=== PATIENT | female | born 1995 | race Caucasian/White ===

== ENCOUNTER → 2020-04-01 11:18 | Outpatient (BNVA) | payer MEDICAID, SELFPAY | PROVIDERS: Family Provider Nurse Practitioner; PCP Nurse Practitioner; Visit Provider Nurse Practitioner Women's Health | DX: O26.841 Uterine size-date discrepancy, first trimester (principal); O99.210 Obesity complicating pregnancy, unspecified trimester; O99.281 Endocrine, nutritional and metabolic diseases complicating pregnancy, first trimester; Z3A.08 8 weeks gestation of pregnancy | CPT/HCPCS: 81000; 84702 ==

== ENCOUNTER 2020-04-06 10:00 | Outpatient (CLI) | payer MEDICAID, SELFPAY ==
--- NOTE | 2020-04-06 10:09 | US_ITS ---
WS: [id number] EARLY OBSTETRICAL ULTRASOUND (<14 WEEKS). HISTORY: dating COMPARISON: None available. Single intrauterine gestational sac is identified. Cardiac activity at 129. [place]-rump length measure s 1.0 cm which corresponds to a gestation of 7w1d. Normal-appearing yolk sac and amnion demonstrated. No subchorionic hemorrhage. No free fluid. Both ovaries are identified and unremarkable. Multiple small peripheral follicles with in each ovary. Corpus luteum in the LEFT ovary measures 2.0 x 1.5 x 1.6 cm. Cervix is closed. No free fluid. US/US OB transvaginal [id number] IMPRESSION: 1. Single intrauterine gestation of 7 weeks 1 day with an EDC of 11/22/2020. 2. No complications are evident.
== END 2020-04-06 10:01 | disposition home or self-care (01) ==
LOC: RAD 10:03
PROVIDERS: PCP Nurse Practitioner Family; Visit Provider Nurse Practitioner Women's Health
DX: O26.841 Uterine size-date discrepancy, first trimester (principal); Z3A.01 Less than 8 weeks gestation of pregnancy
CPT/HCPCS: 76817

== ENCOUNTER → 2020-04-13 12:12 | Outpatient (BNVA) | payer MEDICAID, SELFPAY | PROVIDERS: PCP Nurse Practitioner Family; Visit Provider Obstetrics & Gynecology | DX: Z34.01 Encounter for supervision of normal first pregnancy, first trimester (principal); E03.9 Hypothyroidism, unspecified | CPT/HCPCS: 80053; 80307; 84315; 84443; 85027; 86592; 86762; 86803; 86850; 86900; 87340; 87806 ==

== ENCOUNTER → 2020-05-21 11:14 | Outpatient (BNVA) | payer MEDICAID, SELFPAY | PROVIDERS: PCP Nurse Practitioner Family; Visit Provider Obstetrics & Gynecology | DX: O99.211 Obesity complicating pregnancy, first trimester (principal); Z12.11 Encounter for screening for malignant neoplasm of colon | CPT/HCPCS: 81000; 82950; 87491; 87591; 88175 ==

== ENCOUNTER → 2020-06-09 12:09 | Outpatient (BNVA) | payer MEDICAID, SELFPAY | PROVIDERS: PCP Nurse Practitioner Family; Visit Provider Nurse Practitioner Women's Health | DX: O99.281 Endocrine, nutritional and metabolic diseases complicating pregnancy, first trimester (principal); E03.9 Hypothyroidism, unspecified; O99.211 Obesity complicating pregnancy, first trimester | CPT/HCPCS: 82105; 82677; 84315; 84702; 86336 ==

== ENCOUNTER → 2020-07-09 11:24 | Outpatient (BNVA) | payer MEDICAID, SELFPAY | PROVIDERS: PCP Nurse Practitioner Family; Visit Provider Obstetrics & Gynecology | DX: Z34.90 Encounter for supervision of normal pregnancy, unspecified, unspecified trimester (principal) | CPT/HCPCS: 76805 ==

== ENCOUNTER → 2020-08-03 10:37 | Outpatient (BNVA) | payer MEDICAID, SELFPAY | PROVIDERS: PCP Nurse Practitioner Family; Visit Provider Obstetrics & Gynecology | DX: O99.281 Endocrine, nutritional and metabolic diseases complicating pregnancy, first trimester (principal); E03.9 Hypothyroidism, unspecified | CPT/HCPCS: 84315; 84443 ==

== ENCOUNTER → 2020-08-31 10:25 | Outpatient (BNVA) | payer MEDICAID, SELFPAY | PROVIDERS: PCP Nurse Practitioner Family; Visit Provider Obstetrics & Gynecology | DX: Z34.90 Encounter for supervision of normal pregnancy, unspecified, unspecified trimester (principal) | CPT/HCPCS: 82950; 84315; 85027 ==

== ENCOUNTER → 2020-10-26 09:20 | Outpatient (BNVA) | payer MEDICAID, SELFPAY | PROVIDERS: PCP Nurse Practitioner Family; Visit Provider Obstetrics & Gynecology | DX: Z34.03 Encounter for supervision of normal first pregnancy, third trimester (principal) | CPT/HCPCS: 84315; 87081 ==

== ENCOUNTER → 2020-11-23 09:03 | Outpatient (BNVA) | payer MEDICAID, SELFPAY | PROVIDERS: PCP Nurse Practitioner Family; Visit Provider Obstetrics & Gynecology | DX: O48.0 Post-term pregnancy (principal); Z01.812 Encounter for preprocedural laboratory examination | CPT/HCPCS: 84315; 87635 ==

== ENCOUNTER 2020-11-28 12:00 | Inpatient (IN) | payer MEDICAID, SELFPAY ==
[2020-11-27] VITALS (8 sets, daily range): BP systolic 118–132; BP diastolic 71–84; PULSE 93–113; RESP 16; TEMP 36.3–36.6; BMI 41.6
[2020-11-27 19:33] LABS: Basophils % 0.2 %; Eosinophils # 0.1 10^3/uL (0.0-0.8); Eosinophils % 1.4 %; Hematocrit 38.1 % (37.0-47.0); Hemoglobin 12.9 g/dL (11.5-15.3); Lymphocytes # 1.2 10^3/uL (0.8-4.8); Lymphocytes % 13.4 %; Mean Corpuscular HGB Conc 33.9 g/dL (30.0-36.0); Mean Corpuscular Hemoglobin 31.2 pg (28.0-34.0); Mean Platelet Volume 10.4 fL (7.4-10.4); Monocytes # 0.6 10^3/uL (0.2-0.9); Monocytes % 6.8 %; Neutrophils # 6.91 10^3/uL (1.8-7.7); Neutrophils % 77.9 %; Nucleated Red Blood Cells % 0 %; Platelet Count 261 10^3/cmm (130-400); Red Blood Count 4.14 10^6/uL (4.1-5.3); Red Cell Distribution Width 13.7 % (12.1-15.1); White Blood Count 8.9 10^3/uL (4.0-10.0)
[2020-11-27] MEDS: miSOPROStol 100 mcg tablet 25 MCG VAGINAL (19:37)
[2020-11-28] VITALS (32 sets, daily range): BP systolic 102–149; BP diastolic 54–90; PULSE 80–104; RESP 16; TEMP 36.4–36.8
[2020-11-28] MEDS: oxytocin 30 UNIT/500 ML BAG IV (08:55)
[2020-11-28] MEDS: alum-mag-hydroxide-sime 30 mL UDC PO ×2 (12:05→21:49)
[2020-11-28] MEDS: dextrose 5%-lactated ringers 1,000 ML 125 ML IV ×2 (13:14→13:15)
[2020-11-28] MEDS: miSOPROStol 100 mcg tablet 25 MCG VAGINAL (20:10)
[2020-11-29] VITALS (35 sets, daily range): BP systolic 102–153; BP diastolic 35–94; PULSE 77–127; RESP 16–18; TEMP 25–37.6; O2SAT 96–100
[2020-11-29] MEDS: miSOPROStol 100 mcg tablet 25 MCG VAGINAL (02:46)
[2020-11-29] MEDS: dextrose 5%-lactated ringers 1,000 ML 125 ML IV ×2 (02:47→16:23)
[2020-11-29] MEDS: oxytocin 30 UNIT/500 ML BAG IV (08:57)
[2020-11-29] MEDS: fentaNYL 50 mcg/mL INJ 2mL IV ×3 (11:41→14:02)
[2020-11-29] MEDS: ondansetron 2 mg/ML SDV 2 mL 4 MG IVP (11:42)
[2020-11-29] MEDS: fentaNYL 50 mcg/mL INJ 2mL IVP ×3 (15:17→17:35)
[2020-11-29] MEDS: lactated ringers 1,000 ML 999 ML IV (20:05)
--- NOTE | 2020-11-29 20:30 | PM.OBGYHP ---
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 She initially presented to labor and delivery on the evening of 11/27/2020 for induction of labor due to term . She was initially received 1 dose of Cytotec 25 mcg vaginally and proceeded to contract through the night. By the following morning she had made no significant cervical change and was started initially on low-dose Pitocin that was brought up to 6 milliunits/min and was continued for about 6 hours before starting an increasing dose. That was continued through the day and by around 1700 in the evening of 11/28, Pitocin was stopped and she received 2 more doses of Cytotec during the night. This morning she was started on Pitocin again. At approximately 1030 this morning, she had spontaneous rupture of membranes with clear fluid present. She was 80% effaced and 3 cm dilated at the time. She then slowly made cervical change through the day. By approximately 1500, she was 6 cm dilated and by 1900 was 8 to 9 cm dilated. By 1940 she was reported to be a rim. Patient had decided not to get an epidural and was planning to use IV pain medication only. However, she became more uncomfortable the pain medication became less effective as expected. And we got to the point where we were unable to keep the baby adequately on the heart rate monitor with external monitoring. Patient was initially refusing to have us scalp electrode placed. But eventually did allow 1 to be placed. Prior to this, we were picking the maternal heart rate up which was running in the 110s to 120s. Once scalp electrode was placed, heart rate was initially in the 170s to 180s. She was placed on oxygen and fluid bolus was started. Temperature was checked and she was afebrile. Heart rate eventually came down to the 160s where she currently is. She has been having variable decelerations with the contractions. She will at times have accelerations up into the 170s to 180s. At this point, patient is very uncomfortable. Labs Rubella: Immune RPR: Negative GBS: Negative Review of Systems Const: Denies: fever(s) or chills ENMT: Denies: throat pain or nasal congestion Card: Reports: lightheadedness; Denies: chest pain or palpitations Resp: Denies: dyspnea, productive cough, non-productive cough or wheezing GI: Reports: abdominal pain; Denies: nausea or vomiting Neuro: Denies: headache(s) or dizziness Psych: Reports: anxiety Medications/Allergies Home Medications Medication Instructions Recorded Confirmed Last Taken Type levothyroxine 75 mcg tablet 75 mcg PO DAILY 04/01/20 11/27/20 11/27/20 08:30 History prenat.vits,elinor,jnv-jwnh-yvkby 1 tab PO DAILY 04/01/20 11/27/20 11/27/20 08:30 History ferrous sulfate 325 mg (65 mg 325 mg PO DAILY 10/13/20 11/27/20 11/27/20 08:30 History iron) tablet Allergies Allergy/AdvReac Type Severity Reaction Status Date / Time No Known Allergies Allergy Verified 11/23/20 08:18 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 PFSH: Medical History (Updated 11/29/20 @ 20:44 by Chris Valdez MD) Hypothyroidism Metabolic syndrome Surgical History History of appendectomy (~2011) Family History Father Diabetes Type 1- Insulin dependent since he was 12 y/o Hyperlipidemia Mother Hypertension Social History Smoking and tobacco status: former smoker Quit status (tobacco): has quit using tobacco Year quit tobacco: 2018 Alcohol intake: former Former alcohol use details: Social before Other Female Reproductive History: Hx Age of Menarche: 12 History History History 1 Term Miscarriages/Ectopic Living Children 0 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 Estimated Delivery Date Method Current WG Current Estimate 11/22/20 Ultrasound #1 41w 0d Other Estimates 11/15/20 LMP (Certain) 42w 0d Expected Delivery Route/Plan Vaginal Specific Issues/Plans Hypothyroidism Obesity Vitals/I&O/Wt Last Vital Signs Temp 97.3 F L 11/29/20 18:14 Pulse 117 H 11/29/20 20:21 Resp 18 11/29/20 17:35 BP 153/76 11/29/20 20:21 Pulse Ox 99 11/29/20 19:46 11/29/20 11/29/20 11/29/20 06:59 14:59 22:59 Intake Total 1110.417 / 1170.982 57.55 / 57.55 889.583 / 947.133 Balance 1110.417 / 1170.982 57.55 / 57.55 889.583 / 947.133 Physical Exam Const: COMMON NORMALS: no acute distress, average body habitus, alert and well nourished GENERAL APPEARANCE: well developed ORIENTATION/CONSCIOUSNESS: Yes oriented to person, Yes oriented to place and Yes oriented to time Resp: COMMON NORMALS: normal respiratory effort and clear to auscultation bilaterally AUSCULTATION: clear to auscultation bilaterally Cardio: COMMON NORMALS: regular rhythm, No gallops present (Cardio) and No rub (Cardio) RATE: tachycardic RHYTHM: regular rhythm GI: COMMON NORMALS: Soft to palpation, non-tender, No hepatosplenomegaly present and no masses (Except for gravid uterus) AUSCULTATION: Yes normoactive bowel sounds PALPATION: Yes Soft to palpation, Yes No hepatosplenomegaly present and No Hernia present : EXTERNAL FEMALE EXAM: No Hernia present OTHER: Cervix is edematous and is now 7 to 8 cm dilated. She is about a 1-1 station. Large amount of caput is present. On attempting to fill beyond the presenting part, the head feels to be wedged fairly tightly at the pelvic inlet. Neuro: SENSORIUM/ORIENTATION: Yes alert, Yes oriented to person, Yes oriented to place and Yes oriented to time Psych: COMMON NORMALS: normal affect MOOD & AFFECT: Yes euthymic mood Data : 11/27/20 18:30 A&P Assessment and plan (1) Arrested active phase of labor: On my exam, the cervix feels to have regressed. It is more edematous and is only 7 to 8 cm dilated now. I believe based upon my exam that she has cephalopelvic disproportion at the inlet. Based upon this I feel it is highly unlikely that she will progressed to complete dilation and be able to be delivered vaginally. I discussed this with the patient and she wishes to go ahead and proceed to section. Risks of surgery were discussed with her including bleeding to the point of needing a blood transfusion, infection, and injury to intra-abdominal organs including bowel, bladder, blood vessels, nerves, and ureters. Patient is also very anxious and is concerned about being able to hold still for the spinal and also for the surgery. She was requesting anxiety medications. Anesthesia will be notified of this. Further questions were answered and we will be preparing for section. Status: Acute (2) Obesity affecting : Due to patient's obesity, higher dose of prophylactic antibiotics was ordered. Status: Acute Qualifiers: Trimester: first trimester Qualified Code(s): O99.211 - Obesity complicating , first trimester Attestations Medical Necessity Statement*: Patient being induced. 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
[2020-11-29] MEDS: citric acid-sodium citrate 30 mL UDC PO (20:41)
[2020-11-29] MEDS: famotidine 20 mg/2 mL INJ IVP (20:41)
[2020-11-29] MEDS: metoclopramide 5 mg/mL SDV 2 mL 10 MG IV (20:42)
--- NOTE | 2020-11-29 21:34 | ANES.PREANE2 ---
Pre-Anesthetic Assessment Pre-Anesthetic Assessment: Height/Weight: Height 1.68 m Weight 117.027 kg Temp Pulse Resp BP Pulse Ox 97.3 F L 117 H 18 142/75 99 11/29/20 18:14 11/29/20 20:44 11/29/20 17:35 11/29/20 20:44 11/29/20 19:46 Was Beta Devi taken within 24 hours: N/A Social: Social History: No alcohol and No tobacco Exam: Pre-Anes Outpt Exam: alert, oriented x 3, clear to auscultation bilaterally and regular rate & rhythm Airway: Submandibular: WNL Cervical ROM: WNL MP: 2 Dentition: Full Metabolic: Metabolic: Morbid obesity and Thyroid Anesthetic Plan: ASA status: 2E Anesthesia: Regional (specify below) Other: SAB Risk of > 500 ml blood loss (7ml/kg in children): Yes, adequate IV access and fluids planned Meds/Allergies Current Medications: Current Medications Generic Name Dose Route Start Last Admin Trade Name Freq PRN Reason Stop Dose Admin Al Hydrox/Mg [place] x/Simethicone 30 ml 11/27/20 18:40 11/28/20 21:49 Mjqh-Yhy-Kndeofk de-Stuart 30 Ml Udc PO 30 ml Q4H PRN Administration INDIGESTION Fentanyl 50 mcg 11/29/20 15:00 11/29/20 17:35 Fentanyl 50 Mcg/ Ml Inj 2ml IVP 50 mcg Q30MIN PRN Administration SEVERE PAIN Dextrose/Lactated Ringer's 1,000 mls @ 125 m ls/hr 11/27/20 18:40 11/29/20 02:47 Dextrose 5%-Lact ated Ringers IV Infused .Q8H PRN Infusion per label comment s Dextrose/Lactated Ringer's 1,000 mls @ 125 m ls/hr 11/28/20 19:00 11/29/20 16:23 Dextrose 5%-Lact ated Ringers IV 125 mls/hr .Q8H AGNES Administration Oxytocin 30 unit in 500 ml s @ 1 mls/hr 11/29/20 08:30 11/29/20 14:30 Pitocin IV 19 milliunit/min .Q24H AGNES 19 mls/hr Titration Protocol 1 MILLIUNIT/MIN Ropivacaine 200 mg in 100 mls @ 13 mls/hr 11/29/20 11:30 11/29/20 15:52 Naropin Premix EPIDURAL Not Given .Q7H42M AGNES Ondansetron HCl 4 mg 11/27/20 18:40 11/29/20 11:42 Ondansetron 2 Mg /Ml Sdv 2 Ml IVP 4 mg Q4H PRN Administration NAUSEA AND VOMITI NG PFSH Anesthesia PFSH: Medical History (Updated 11/29/20 @ 20:44 by Chris Valdez MD) Hypothyroidism Metabolic syndrome Surgical History History of appendectomy (~2011) Family History Father Diabetes Type 1- Insulin dependent since he was 12 y/o Hyperlipidemia Mother Hypertension Social History Smoking and tobacco status: former smoker Quit status (tobacco): has quit using tobacco Year quit tobacco: 2018 Alcohol intake: former Former alcohol use details: Social before Female Reproductive History: : 1 Data Anesthesia CBC & Chem 7: 11/27/20 18:30 Cardiac Studies: No Data to Display
--- NOTE | 2020-11-29 22:15 | PM.OP ---
Operative Report Date of procedure: November 29, 2020 Pre-op Diagnosis: 1. Arrest of labor. 2. at 41-0/7 weeks gestation. 3. Maternal obesity complicating Post-op Diagnosis: 1. Cephalopelvic disproportion with large fetus. 2. at 41-0/7 weeks gestation 3. Maternal obesity complicating - delivered 4. Viable female Procedure Done: Primary low transverse section Specimens removed/disposition: None Surgeon: Chris aVldez Agent Based Modeler: Jill Anesthesia: Other (Spinal) Estimated blood loss (mL): 800 IV fluids (mL): 1,800 Urine output (mL): 200 Complications: None Findings: 1. Viable female infant weighing 9 lbs 0 oz (4090 g) with a length of 21 inches and Apgars of 8 at 1 minute 9 at 5 minutes. 2. Normal-appearing uterus, tubes, and ovaries. Brief History: Patient is a 25-year-old female 1, para 0 with an LMP of 02/09/2020 and an EDC of 11/22/2020 based on a 7-week ultrasound, which placed her at 41-0/7 weeks gestation today. She had presented to labor and delivery in the evening of 11/27/2020 for induction of labor due to term . She received 1 dose of Cytotec 25 mcg vaginally and proceeded to contract through the night. She was started on Pitocin the next day and was continued on that till the evening. The Pitocin was stopped that evening and she received 2 more doses through the night. This morning, she was started on Pitocin again. She had spontaneous rupture membranes at approximately 10:30 in the morning with clear fluid present. She made slow progression through the day and by 1900 was 8 to 9 cm dilated and by 0 was a ramp. However, at the time of my evaluation at approximately 2029, cervix had shrunk in dilation and was now 7 to 8 cm with a very puffy cervix. As a result, decision was made to proceed to a section due to arrest of labor with suspected cephalopelvic disproportion. Procedure: Patient was taken to the operating room where spinal anesthesia was obtained. She was prepped and draped in the usual sterile fashion in a dorsal supine position with a leftward tilt. Casper catheter and sequential compression boots had been placed prior to starting the case. A Pfannenstiel skin incision was made with a knife and carried down to the underlying fascia with the knife. Fascia was incised in the midline with the knife and extended laterally with Angeles scissors. Superior aspect of the fascia was grasped with Don clamps, elevated, and sharply and bluntly dissected. The inferior aspect of the fascia was grasped with Don clamps, elevated, and sharply and bluntly dissected. The rectus muscles were in the midline. Peritoneum was sharply entered. Peritoneal incision was extended both superiorly and inferiorly with good visualization of the bladder. Bladder blade was inserted. The vesicouterine peritoneum was tented up and sharply entered. It was extended laterally and the bladder flap was created digitally. Bladder blade was reinserted. A transverse incision was made with the knife in the lower uterine segment. Clear fluid was obtained upon entry into the uterine cavity. The 's head was delivered and no nuchal cords were noted. The rest of the delivered atraumatically. Nose and mouth were suctioned with bulb suction. Cord was clamped and cut and the infant was handed off to Dr. Newsome and the waiting nurses. Cord blood was obtained. Placenta was delivered via uterine massage. Patient received 20 units of Pitocin in the IV fluids. The uterus was exteriorized and cleared of clots and debris. The uterine incision was closed in a running locking fashion using 0 Vicryl suture. The incision was imbricated using 0 Vicryl suture in a horizontal mattress fashion. The incision was inspected and noted to be hemostatic. Posterior cul-de-sac was thoroughly irrigated and cleared of clots and blood. The uterus was returned to the abdomen. The uterine incision was irrigated and noted to be hemostatic. The gutters were cleared of clots and blood. The rectus muscles and peritoneum were reapproximated in the midline using interrupted stitches of 2-0 Vicryl suture. The muscle layer was irrigated and noted to be hemostatic. The fascia was reapproximated using 0 Vicryl suture in a running fashion. The subcutaneous layer was irrigated and brought to hemostasis using electrocautery. It was reapproximated using 3-0 plain suture in an interrupted fashion. Skin was reapproximated using 4-0 Vicryl suture in a subcuticular fashion. Steri-Strips were applied. Patient tolerated the procedures well. Sponge, needle, and instrument counts were correct. DRAINS: Casper catheter POSTOPERATIVE STATUS: The patient was left to recover in satisfactory condition Associated Problem List Diagnoses (1) Cephalopelvic disproportion due to unusually large fetus: Qualifiers: Fetus number: single or unspecified fetus Qualified Code(s): O33.5XX0 - Maternal care for disproportion due to unusually large fetus, not applicable or unspecified (2) Maternal obesity, delivered, current hospitalization:
[2020-11-30] VITALS (32 sets, daily range): BP systolic 98–128; BP diastolic 52–74; PULSE 70–112; RESP 16–19; TEMP 36.4–36.8; O2SAT 97–98
[2020-11-30] MEDS: ketorolac 30 mg/mL INJ IVP ×2 (03:06→10:04)
[2020-11-30 06:24] LABS: Hemoglobin 10.5 g/dL (11.5-15.3); Mean Corpuscular HGB Conc 33.9 g/dL (30.0-36.0); Mean Corpuscular Hemoglobin 31.7 pg (28.0-34.0); Mean Corpuscular Volume 93.7 fL (81-99); Mean Platelet Volume 9.8 fL (7.4-10.4); Platelet Count 219 10^3/cmm (130-400); Red Blood Count 3.31 10^6/uL (4.1-5.3); Red Cell Distribution Width 13.6 % (12.1-15.1); White Blood Count 11.6 10^3/uL (4.0-10.0)
[2020-11-30] MEDS: sodium chloride 0.9% 1,000 ML 999 ML IV (07:02)
[2020-11-30] MEDS: docusate sodium 100 mg Capsule PO ×2 (10:04→18:35)
[2020-11-30] MEDS: levothyroxine 75 mcg Tablet PO (10:04)
--- NOTE | 2020-11-30 10:43 | ANE.PACU2 ---
Inpatient post-anesthesia follow up: Airway intact: Yes Vital signs: Temperature 98.1 F Pulse Rate 102 Respiratory Rate 18 Blood Pressure 104/59 Pulse Oximetry 97 Oxygen Delivery Me thod Room Air Oxygen Flow Rate Fraction of Inspir ed Oxygen Hydration adequate: Yes Nausea and vomiting: No Pain level: 1 Mental status: Baseline Additional Comments: No weakness/numbness of lower extremities, no headaches, no signs of infection at neuraxial site
[2020-11-30] MEDS: dextrose 5%-lactated ringers 1,000 ML 125 ML IV (12:03)
[2020-11-30] MEDS: ibuprofen 800 mg tablet PO ×2 (16:01→20:13)
--- NOTE | 2020-11-30 17:31 | PM.PN ---
Subjective Subjective: Interval history: Denies any problems or concerns. States starting to hurt a little more this afternoon. Denies lightheadedness or dizziness beyond the first couple times of getting out of bed. Denies shortness of breath or chest pains. Reports tolerating liquids without nausea or vomiting. Reports passing flatus. Vitals/I&O/Wt Last Vital Signs Temp 98.3 F 11/30/20 13:00 Pulse 98 11/30/20 13:00 Resp 17 11/30/20 13:00 BP 112/69 11/30/20 13:00 Pulse Ox 98 11/30/20 13:00 11/30/20 11/30/20 11/30/20 06:59 14:59 22:59 Intake Total 2682.45 / 2682.45 498 / 3180.45 Output Total 280 / 1480 482 / 482 800 / 1282 Balance -280 / 012.414 2209.45 / 2200.45 -302 / 1898.45 Physical Exam Const: COMMON NORMALS: no acute distress, average body habitus, alert and well nourished GENERAL APPEARANCE: well developed ORIENTATION/CONSCIOUSNESS: Yes oriented to person, Yes oriented to place and Yes oriented to time Resp: COMMON NORMALS: normal respiratory effort and clear to auscultation bilaterally AUSCULTATION: clear to auscultation bilaterally Cardio: COMMON NORMALS: regular rate, regular rhythm, No gallops present (Cardio), No murmurs present (Cardio) and No rub (Cardio) RATE: regular rate RHYTHM: regular rhythm GI: COMMON NORMALS: Soft to palpation, No hepatosplenomegaly present and no masses (Except for uterus) INSPECTION: Yes incision (Dressing is dry) AUSCULTATION: Yes normoactive bowel sounds PALPATION: Yes Soft to palpation, Yes Tenderness to palpation present (GI) (Lower abdomen), Yes No hepatosplenomegaly present and No Hernia present : EXTERNAL FEMALE EXAM: No Hernia present Extremity: COMMON NORMALS: no calf tenderness NARRATIVE EXTREMITY EXAM: 1+ lower extremity edema bilaterally Neuro: SENSORIUM/ORIENTATION: Yes alert, Yes oriented to person, Yes oriented to place and Yes oriented to time Psych: COMMON NORMALS: normal affect MOOD & AFFECT: Yes euthymic mood Urinary Catheter Management^: Casper: Cath Placed During This Visit: yes, but has since been removed by the nurse Reason for Continuing Indwelling Catheter: Decision to DC Catheter Date Urinary Catheter Removed: 11/30/20 Time Urinary Catheter Discontinued: 16:00 Data : 11/30/20 06:05 A&P Assessment and plan (1) Cephalopelvic disproportion due to unusually large fetus: Postoperative day 1, status post primary section. Patient doing well at this time. She initially had low urine output this morning but this responded to fluid bolus and has continued to have good urine output since. Casper catheter has now been discontinued and IV converted to a PIID. Patient has been tolerating clear liquids well. Advance to regular diet. May shower. Discussed with patient switching over to oral pain medication. If everything goes well, probable discharge to home tomorrow afternoon. Status: Acute Qualifiers: Fetus number: single or unspecified fetus Qualified Code(s): O33.5XX0 - Maternal care for disproportion due to unusually large fetus, not applicable or unspecified (2) Hypothyroidism affecting : Patient has been continued on her levothyroxine while in the hospital. Status: Acute Qualifiers: Trimester: third trimester Qualified Code(s): O99.283 - Endocrine, nutritional and metabolic diseases complicating , third trimester; E03.9 - Hypothyroidism, unspecified Attestations Medical Necessity Statement*: Less than 24 hours since section. 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
[2020-11-30] MEDS: HYDROcodone-acetaminophen 5-325 mg Tablet PO (23:43)
[2020-12-01] MEDS: HYDROcodone-acetaminophen 5-325 mg Tablet PO ×3 (03:48→11:52)
[2020-12-01] MEDS: docusate sodium 100 mg Capsule PO (07:54)
[2020-12-01] MEDS: levothyroxine 75 mcg Tablet PO (07:54)
[2020-12-01] MEDS: ibuprofen 800 mg tablet PO (07:55)
[2020-12-01 11:11] VITALS: BP 117/74; PULSE 96; RESP 18; TEMP 37; O2SAT 98
--- NOTE | 2020-12-01 13:18 | P.DS_ITS ---
Discharge Providers STAFF PHYSICAL THERAPY ASSISTANT Date of Admission: 11/29/20 20:27 Date of Discharge: 12/01/20 Attending Provider at Admission: Chris Valdez MD Attending Provider at Discharge: Chris Valdez MD Primary STAFF PHYSICAL THERAPY ASSISTANT: Chris Valdez MD Primary Care Provider: Nicolasa Padron APN Diagnoses at Discharge Discharge Diagnosis (1) Cephalopelvic disproportion due to unusually large fetus: Status: Acute Qualifiers: Fetus number: single or unspecified fetus Qualified Code(s): O33.5XX0 - Maternal care for disproportion due to unusually large fetus, not applicable or unspecified (2) Hypothyroidism affecting : Status: Acute Qualifiers: Trimester: third trimester Qualified Code(s): O99.283 - Endocrine, nutritional and metabolic diseases complicating , third trimester; E03.9 - Hypothyroidism, unspecified Reason for Visit Reason for Visit: Induction of Labor Hospital Course Hospital Course Patient is a 25-year-old female 1, now para 1-0-0-1 with an LMP of 2019 and an EDC of 11/22/2020 based on a 7-week ultrasound, which placed her at 40-5/7 weeks gestation at the time of admission. She presented to labor and delivery in the evening of 11/27/2020 for cervical ripening and induction of labor due to term . She received 1 dose of Cytotec 25 mcg vaginally and proceeded to contract through the night. On the following morning, she had made no significant cervical change, but was continuing to contract too much to receive another dose of Cytotec. As a result low-dose steady rate of Pitocin was started. By midday, she was switched to increasing dose in each of Pitocin which was continued through the evening. By around 1700, she had made no significant cervical change and Pitocin was stopped. She received 2 more doses of Cytotec vaginally and by the following morning, she had made cervical change and was started back on Pitocin. She had spontaneous rupture membranes of clear fluid at approximately 1030 and proceeded to progress slowly through the day. She progressed to a rim by 1940. However following this, cervix became puffy and cervix shrank to 7 to 8 cm dilated. It felt like the had was tied at the pelvic inlet. Based upon this she was diagnosed with this arrest of labor with suspected cephalopelvic disproportion. section was discussed with her and she agreed to this. A low transverse section was performed with the delivery of a viable female weighing 9 lbs 0 oz (4090 g) with a length of 21 inches and Apgars of 8 at 1 minute and 9 at 5 minutes. Patient received Duramorph in her spinal for pain management after delivery. By the following morning, patient was noted to have low urine output and was given fluid boluses. Urine output responded appropriately to this. Postoperative Day 1 Patient reported she was doing well overall. Her pain had been well controlled with Duramorph, but have started hurting more as the afternoon progressed. She denied lightheadedness or dizziness following initial arising. She denied shortness of breath or chest pain. She was tolerating liquids without nausea or vomiting. She had started passing flatus. She was afebrile with stable vital s igns. Diet was advanced to a regular diet by the evening. She had continued to have good urine output through the day and Casper catheter was discontinued. She was switched to oral pain medications. Postoperative Day 2 Patient reports doing well today. She reports tolerating a regular diet without nausea or vomiting. She denies lightheadedness or dizziness. She denies shortness of breath or chest pains. She stated her pain has been well controlled. She denied problems with urination. She reports passing flatus. She states her bleeding has slowed. She was requesting to go home today. Physical exam: See below Plan Discharge instructions were discussed with the patient. Patient to follow-up in the office in 2 and 6 weeks following discharge. She was instructed to continue her thyroid hormone at home. Information Peripartum Data: Delivery Method: : 1: Gender: Female Disposition of : home Additional Information: Viable female infant weighing 9 lbs 0 oz (4090 g) with a length of 21 inches and Apgars of 8 at 1 minute and 9 at 5 minutes. Physical Exam Const: COMMON NORMALS: no acute distress, alert and well nourished GENERAL APPEARANCE: well developed NUTRITIONAL APPEARANCE: obese ORIENTATION/CONSCIOUSNESS: Yes oriented to person, Yes oriented to place and Yes oriented to time Resp: COMMON NORMALS: normal respiratory effort and clear to auscultation bilaterally AUSCULTATION: clear to auscultation bilaterally Cardio: COMMON NORMALS: regular rate, regular rhythm, No gallops present (Cardio) and No rub (Cardio) RATE: regular rate RHYTHM: regular rhythm GI: COMMON NORMALS: Soft to palpation, No hepatosplenomegaly present and no masses (Except for uterus) INSPECTION: Yes incision (Clean, dry, and intact with Steri-Strips present) AUSCULTATION: Yes normoactive bowel sounds PALPATION: Yes Soft to palpation, Yes Tenderness to palpation present (GI) (Lower abdomen), Yes No hepatosplenomegaly present and No Hernia present : EXTERNAL FEMALE EXAM: No Hernia present Extremity: COMMON NORMALS: no calf tenderness NARRATIVE EXTREMITY EXAM: Trace lower extremity edema bilaterally Neuro: SENSORIUM/ORIENTATION: Yes alert, Yes oriented to person, Yes oriented to place and Yes oriented to time Psych: COMMON NORMALS: normal affect MOOD & AFFECT: Yes euthymic mood Urinary Catheter Management^: Casper: Cath Placed During This Visit: yes, but has since been removed by the nurse Reason for Continuing Indwelling Catheter: Decision to DC Catheter Urinary Catheter Date of Insertion: 11/29/20 Urinary Catheter Time of Insertion: 20:30 Date Urinary Catheter Removed: 11/30/20 Time Urinary Catheter Discontinued: 16:00 Discharge Data Data Completed and Pendin11/27/2020: CBC: WBC 8.9, hemoglobin 12.9, hematocrit 38.1, platelet 261,000 11/30/2020: CBC: WBC 11.6, hemoglobin 10.5, hematocrit 31.0, platelet 219,000 Vitals: Last Vital Signs Temp 98.6 F 12/01/20 11:11 Pulse 96 12/01/20 11:11 Resp 18 12/01/20 11:11 BP 117/74 12/01/20 11:11 Pulse Ox 98 12/01/20 11:11 Discharge Plan Discharge Patient Disposition: Home Condition: Stable Prescriptions: New hydrocodone-acetaminophen 5-325 mg Tablet 1 - 2 tab PO Q6H PRN (Reason: Moderate To Severe Pain) Qty: 30 RF: 0 ibuprofen 800 mg Tablet 800 mg PO TID PRN (Reason: pain) Qty: 40 RF: 0 Continued levothyroxine [Synthroid] 75 mcg tablet 75 mcg PO DAILY RF: 0 prenat.vits,elinor,tjo-ehii-tyimw Tablet 1 tab PO DAILY RF: 0 ferrous sulfate [FeroSul] 325 mg (65 mg iron) tablet 325 mg PO DAILY RF: 0 Discharge Orders: Discharge Order (Routine); Ordered 12/01/20 Ordered By: Chris Valdez Referrals: Chris Valdez MD [Physician] - (2-week incision check 6-week exam) Discharge Diet: Regular Discharge Activity: Limit activity as instructed Patient Instructions: Pre-eclampsia and Eclampsia (DC), OB WHC, OB Discharge Report, OB Food/Drug Interaction Guide, OB Home Care, OB Proud Parent Packet Discharge Attestations STAFF PHYSICAL THERAPY ASSISTANT Time Spent in Discharge Care*: less than 30 min Coding Level of Care Code Acute Kicking Machine Operator for Chg Fwd Diagnoses Cephalopelvic disproportion due to unusually large fetus O33.5XX0 Fetus number: single or unspecified fetus Hypothyroidism affecting O99.283; E03.9 Trimester: third trimester
[2020-12-01 14:56] VITALS: BP 112/74; PULSE 89; RESP 18; TEMP 36.6
[2020-12-01 16:07] VITALS: BP 112/74; PULSE 89; RESP 18; TEMP 36.6
== END 2020-12-01 15:59 | disposition home or self-care (01) | DRG 788 ==
PROVIDERS: Admitting Provider Obstetrics & Gynecology; PCP Nurse Practitioner Family; Visit Provider Obstetrics & Gynecology
PROC: 10D00Z1 Extraction of Products of Conception, Low, Open Approach (ICD-10-PCS; CPT 59514; principal; 2020-11-29 20:55)
DX: O48.0 Post-term pregnancy (principal); Z3A.41 41 weeks gestation of pregnancy; Z37.0 Single live birth; O62.1 Secondary uterine inertia; O33.5XX0 Maternal care for disproportion due to unusually large fetus, not applicable or unspecified; O76 Abnormality in fetal heart rate and rhythm complicating labor and delivery; O99.284 Endocrine, nutritional and metabolic diseases complicating childbirth; E03.9 Hypothyroidism, unspecified; O99.214 Obesity complicating childbirth; Z87.891 Personal history of nicotine dependence
CPT/HCPCS: 12345; 36415; 59409; 85025; 85027; G0378; G0379; J1200; J1885; J2274; J2370; J2405; J2765; J3010; J3490; J7030

== ENCOUNTER 2025-05-25 22:50 | Emergency (ER) | payer SELFPAY ==
[2025-05-25 22:52] VITALS: BP 132/83; PULSE 93; RESP 16; TEMP 36.6; O2SAT 98; BMI 35.5
--- OUTSIDE RECORDS SUMMARY | 2025-05-25 22:56 | XMS_ITS | Patient Health Record ---
Author Organization [facility] Address [address] [facility] [address] [place] [address] Care Team Providers Care Testing And Regulating Technician Name Role Phone LURDES January Primary Care Provider Cindy Jolly Unavailable [phone] Allergies No Known Allergies Reason For Referral No Information Medications Medication SIG (Take, Route, Frequency, Duration) Notes Start Date End Date Status Ibuprofen Active HYDROcodone-Acetaminophen Active Problems Problem Type SNOMED Code ICD Code Onset Dates Problem Status W/U Status Risk Notes Problem 32258123 Closed fracture of left forearm, initial encounter (S52.92XA) Active confirmed Plan Of Treatment Pending Test Test Name Order Date [id number] 09/12/2023 FOREARMLTPMP 09/12/2023 Medical (General) History Surgical History Surgery Date(Month/Year)
--- OUTSIDE RECORDS SUMMARY | 2025-05-25 22:56 | XMS_ITS | Clinical Summary ---
Author Organization [facility] Address [address] [place] [address] Phone Care Team Providers Care Internal Combustion Engine Assembler Name Role Phone Nicolasa Padron NP Primary Care Provider [phone] Allergies No known active allergies Medications No known medications Active Problems No known active problems Immunizations Immunization Administration Dates Next Due Tdap 06/07/2024 Social History Tobacco Use Types Packs/Day Years Used Date Smoking Tobacco: Never Assessed Comments Unknown Sex and Gender Information Value Date Recorded Sex Assigned at Not on file Legal Sex Female 2:19 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 Gender Identity Not on file Sexual Orientation Not on file Last Filed Vital Signs Vital Sign Reading Time Taken Comments Blood Pressure 118/76 06/07/2024 3:26 PM CDT Pulse 94 06/07/2024 3:26 PM CDT Temperature 36.8 C (98.2 F) 06/07/2024 3:26 PM CDT Respiratory Rate 16 06/07/2024 3:26 PM CDT Oxygen Saturation 98% 06/07/2024 3:26 PM CDT Inhaled Oxygen Concentration - - Weight 109 kg (240 lb 6.4 oz) 06/07/2024 3:26 PM CDT Height - - Body Mass Index - - Plan of Treatment Health Maintenance Due Date Last Done Comments Annual Depression Screening 2004 Annual Physical 2011 Hepatitis C Antibody Screen 2011 Cervical Cancer Screening 2014 Influenza Vaccine 06/30/2025 DTap/Tdap/Td Vaccines (2 - Td or Tdap) 06/07/2034 Care Teams Internal Combustion Engine Assembler Relationship Specialty Start Date End Date Nicolasa Padron NP [address] [place] [address], [address] [place] [address] PCP - General Nurse Practitioner 12/10/18
[2025-05-25 23:20] VITALS: BP 126/73; PULSE 92; RESP 16; O2SAT 97
--- NOTE | 2025-05-26 00:29 | ED_ITS ---
HPI - Animal Bite General: Chief Complaint: Animal Bite Stated Complaint: Bat Landed on LT arm left scratches Time Seen by Provider: 05/25/25 23:26 History of Present Illness: 29-year-old female says she was outside at desk, when a bat landed on her left forearm. Left a scratch. There was also a previous scratch on her forearm, that was abraded by the bat. She does not have significant pain. She says it was mildly painful in the beginning. No continued bleeding. She scrubbed the areas with soap and water immediately. No fever. No vomiting. Related Data Home Medications ?Medication ?Instructions ?Recorded ?Confirmed levothyroxine 75 mcg tablet 75 mcg PO DAILY 04/01/20 0 05/23/25 (Synthroid) Previous Rx's ?Medication ?Instructions ?Recorded doxycycline monohydrate 100 mg 100 mg PO BID #14 caps 05/23/25 capsule amoxicillin 875 mg-potassium 1 tab PO BID #7 tabs 04/30 06/23 clavulanate 125 mg tablet Allergies Allergy/AdvReac Type Severity Reaction Status Date / Time No Known Allergies Allergy Verified 05/23/25 09:18 [facility] ED [facility]: Medical History (Updated 05/26/25 @ 00:33 by Stan Brewer DO) Metabolic syndrome Acquired hypothyroidism Surgical History S/P primary low transverse (11/29/20) Diagnosis: Arrest of labor. Performed by Dr. Valdez at [facility] in [place], [place]. Confirmed low transverse incision with 2 layer closure. History of appendectomy (~2011) Family History Father Diabetes Type 1- Insulin dependent since he was 12 y/o Hyperlipidemia Mother Hypertension Social History Smoking and tobacco/nicotine status: never used tobacco/nicotine Quit status (tobacco/nicotine): has quit using Year quit tobacco: 2018 Alcohol intake: former Former alcohol use details: Social before Substance/Drug Use: never Female Reproductive History: Para: 1 Physical Exam Const: COMMON NORMALS: no acute distress GENERAL APPEARANCE: cooperative; not ill appearing and not frail appearing HENMT: COMMON NORMALS: normocephalic, atraumatic and Normal external nose present HEAD & SCALP: normocephalic and atraumatic FACE & SINUS: normal facial exam and face symmetric NOSE: Normal external nose present Eye: COMMON NORMALS: Equal, round and reactive pupils present and EOMs intact bilaterally PUPIL: Yes Equal, round and reactive pupils present Neck/C-Spine: GENERAL: Yes trachea midline Chest: CHEST: Yes Symmetrical chest wall rise Resp: COMMON NORMALS: normal respiratory effort, No retractions, No use of accessory muscles and clear to auscultation bilaterally AUSCULTATION: clear to auscultation bilaterally Cardio: COMMON NORMALS: regular rate and regular rhythm RATE: regular rate RHYTHM: regular rhythm Extremity: COMMON NORMALS: no pedal edema Neuro: JULIANNE COMA SCALE: document GCS findings Julianne coma scale eye opening: Spontaneous [place] coma scale verbal response: Orientated Julianne coma scale motor response: Obey commands Julianne coma scale total score: 15 SENSORY EXAM: Yes extremities (intact) Psych: COMMON NORMALS: speech normal SPEECH: Yes normal speech Skin: NARRATIVE SKIN EXAM: 2 small abrasions to the dorsum of the l eft forearm distally. No active bleeding. No redness or streaking. Course Vital Signs: Vital signs: Vital Signs Temperature 97.9 F 05/25/25 22:52 Pulse Rate 92 05/25/25 23:20 Respiratory Rate 16 05/25/25 23:20 Blood Pressure 126/73 05/25/25 23:20 Pulse Oximetry 97 05/25/25 23:20 Oxygen Delivery Me thod Room Air 05/25/25 23:20 MDM - Animal Bite Medical Decision Making Because of potential rabies exposure via bat, rabies immunoglobulin has to be given in this case. She will also receive her first rabies vaccine. She will go on the schedule following this. She will return for any problems. No radiology studies performed this visit Discharge Plan Discharge Patient Disposition: Home Clinical Impression: Abrasion forearm Condition: Stable Prescriptions: New amoxicillin-pot clavulanate 875-125 mg tablet 1 tab PO BID Qty: 7 0RF No Action levothyroxine [Synthroid] 75 mcg tablet 75 mcg PO DAILY doxycycline monohydrate 100 mg capsule 100 mg PO BID Qty: 14 0RF Discharge Orders: Discharge ED (Routine); Ordered 05/26/25 Ordered By: Stan Brewer Referrals: Nicolasa Padron APN [Primary Care Provider, Nurse Practitioner] - 4-7 days Patient Instructions: Rabies Vaccine (By injection), Rabies Immune Globulin (By injection), Opioid Safety, Pain Management, Patient Portal & Kezia Instructions Activity Restrictions/Additional Instructions: Follow the rabies vaccine schedule to receive your additional rabies vaccinations. Antibiotics as directed. Wash wounds with soap and running water. Return for any problems. Print Language: Bengali Coding Level of Care Code ED Pulmonary Specialist for [place]
[2025-05-26] MEDS: rabies vaccine 2.5 unit SDV IM (00:40)
[2025-05-26] MEDS: rabies IG 300 unit/mL SDV 1 mL 2000 UNIT IM (00:42)
== END 2025-05-26 01:15 | disposition home or self-care (01) ==
PROVIDERS: Emergency Provider Emergency Medicine; PCP Nurse Practitioner Family
DX: S50.812A Abrasion of left forearm, initial encounter (principal); W64.XXXA Exposure to other animate mechanical forces, initial encounter; Z20.3 Contact with and (suspected) exposure to rabies; Z29.14 Encounter for prophylactic rabies immune globulin
CPT/HCPCS: 90375; 90471; 90675; 99283

== ENCOUNTER 2025-05-29 14:30 | Oncology outpatient (recurring) (ONCR) | payer SELFPAY ==
[2025-05-29] MEDS: rabies vaccine 2.5 unit SDV IM (14:48)
== END 2025-05-29 23:59 | disposition home or self-care (01) ==
PROVIDERS: PCP Nurse Practitioner Family; Visit Provider Emergency Medicine
DX: Z23 Encounter for immunization (principal); Z20.3 Contact with and (suspected) exposure to rabies; S50.812A Abrasion of left forearm, initial encounter; X58.XXXA Exposure to other specified factors, initial encounter
CPT/HCPCS: 90471; 90675

== ENCOUNTER 2025-06-09 15:03 | Oncology outpatient (recurring) (ONCR) | payer SELFPAY ==
[2025-06-02] MEDS: rabies vaccine 2.5 unit SDV IM (14:40)
[2025-06-09] MEDS: rabies vaccine 2.5 unit SDV IM (15:33)
== END 2025-06-29 23:59 | disposition home or self-care (01) ==
PROVIDERS: PCP Nurse Practitioner Family; Visit Provider Emergency Medicine
DX: Z53.9 Procedure and treatment not carried out, unspecified reason (principal); Z23 Encounter for immunization; Z20.3 Contact with and (suspected) exposure to rabies; S50.812A Abrasion of left forearm, initial encounter; X58.XXXA Exposure to other specified factors, initial encounter
CPT/HCPCS: 90471; 90675

== ENCOUNTER 2025-07-05 19:11 | Emergency (ER) | payer SELFPAY ==
[2025-07-05 19:17] VITALS: BP 129/85; PULSE 94; RESP 16; TEMP 36.7; O2SAT 99; BMI 35.5
--- OUTSIDE RECORDS SUMMARY | 2025-07-05 19:18 | XMS_ITS | Clinical Summary ---
Author Organization [facility] Address [facility] [place] [address] Phone Care Team Providers Care Mica Washer Gluer Name Role Phone Nicolasa Padron NP Primary Care Provider [phone] Allergies No known active allergies Medications No known medications Active Problems No known active problems Immunizations Immunization Administration Dates Next Due Tdap 06/07/2024 Social History Tobacco Use Types Packs/Day Years Used Date Smoking Tobacco: Never Assessed Comments Unknown Sex and Gender Information Value Date Recorded Sex Assigned at Not on file Legal 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
--- OUTSIDE RECORDS SUMMARY | 2025-07-05 19:18 | XMS_ITS | Patient Health Record ---
Author Organization [facility] Address [address] [facility] [address] [place] [address] Care Team Providers Care Non Destructive Testing Engineer Name Role Phone LURDES January Primary Care Provider Cindy Jolly Unavailable [phone] Allergies No Known Allergies Reason For Referral No Information Medications Medication SIG (Take, Route, Frequency, Duration) Notes Start Date End Date Status Ibuprofen Active HYDROcodone-Acetaminophen Active Problems Problem Type SNOMED Code ICD Code Onset Dates Problem Status W/U Status Risk Notes Problem [id number] Closed fracture of left forearm, initial encounter (S52.92XA) Active confirmed Plan Of Treatment Pending Test Test Name Order Date [id number] 09/12/2023 FOREARMLTPMP 09/12/2023 Medical (General) History Surgical History Surgery Date(Month/Year)
--- NOTE | 2025-07-05 20:09 | XRR_ITS ---
PROCEDURE INFORMATION: Exam: XR Right Knee Exam date and time: 07/05/2025 8:24 PM Age: 29 years old Clinical indication: Injury or trauma; Blunt trauma; Right; Patient sustained a fall landing directly onto RT knee. C/O pain. ; Additional info: Pain/twisting inj TECHNIQUE: Imaging protocol: Radiologic exam of the right knee. Views: 3 views. COMPARISON: No relevant prior studies available. FINDINGS: Bones/joints: Normal. Soft tissues: Normal. XR/XR knee RT 3V* [id number] IMPRESSION: No acute findings.
--- NOTE | 2025-07-05 21:08 | W.ED.EXTPRO ---
HPI - Extremity Problem General: Chief complaint: Extremity Injury, Lower Stated complaint: Rt Knee popped when she got up from falling Time Seen by Provider: 07/05/25 19:29 Source: patient Mode of arrival: ambulatory Limitations: no limitations History of Present Illness: Patient is a 29-year-old female who presents the emergency department complaining of right knee pain beginning earlier today. She states that she was working outside cleaning up brush and debris at a house that she recently inherited, and states that she was climbing on the elder of a tractor and an object fell backwards, startling the patient to where she jumped off and twisted her knee. States that since she has had instability in her knee and has had difficulty walking secondary to the pain. Notes a history of previous ligament injury to her left and states that this pain on her right feels similar. Primarily the pain is reported to be to the right lateral knee, over there is no bruising or swelling noted at this time. She is just reporting difficulty with ambulation, and states pain occasionally radiates distally. No other injuries. Did not take any medications prehospital. Reports the pain is absent when she is resting, but with any movement it feels like a sharp shooting pain. MD Complaint: joint pain Onset (ago): hour(s) Pain Consistency: constant Location: right and knee Quality: crushing Radiation: distal Exacerbating factors: range of motion, weight bearing and walking Associated symptoms: Deny chest pain, fever(s) or rash Related Data Home Medications ?Medication ?Instructions ?Recorded ?Confirmed levothyroxine 75 mcg tablet 75 mcg PO DAILY 04/01/20 05/23/25 (Synthroid) Previous Rx's ?Medication ?Instructions ?Recorded doxycycline monohydrate 100 mg 100 mg PO BID #14 caps 05/23/25 capsule amoxicillin 875 mg-potassium 1 tab PO BID #7 tabs 05/26/25 clavulanate 125 mg tablet Allergies Allergy/AdvReac Type Severity Reaction Status Date / Time No Known Allergies Allergy Verified 05/23/25 09:18 Review of Systems General: Reports: 10 or more systems reviewed and unremarkable except in HPI and below Const: Denies: fever(s) or chills Card: Denies: chest pain Resp: Denies: dyspnea or productive cough GI: Denies: abdominal pain, nausea, vomiting or diarrhea : Denies: flank pain Musc: Reports: joint pain (Right knee); Denies: neck pain, back pain, extremity pain, extremity swelling, joint swelling, joint redness, joint warmth, limited range of motion or muscle weakness Skin/Breast: Denies: rash Neuro: Denies: headache(s), numbness in extremities or weakness in extremities PFSH ED PFSH: Medical History Metabolic syndrome Acquired hypothyroidism Surgical History S/P primary low transverse (11/29/20) Diagnosis: Arrest of labor. Performed by Dr. Valdez at [facility] in [place], [place]. Confirmed low transverse incision with 2 layer closure. History of appendectomy (~2011) Family History Father Diabetes Type 1- Insulin dependent since he was 12 y/o Hyperlipidemia Mother Hypertension Social History Smoking and tobacco/nicotine status: never used tobacco/nicotine Quit status (tobacco/nicotine): has quit using Year quit tobacco: 2018 Alcohol intake: former Former alcohol use details: Social before Substance/Drug Use: never Female Reproductive History: Para: 1 Physical Exam Const: COMMON NORMALS: no acute distress, patient oriented x3, no limitations, healthy appearing, alert and well nourished HENMT: COMMON NORMALS: normocephalic and atraumatic HEAD & SCALP: normocephalic and atraumatic Neck/C-Spine: COMMON NORMALS: full ROM, supple and no meningeal signs Resp: COMMON NORMALS: normal respiratory effort, No use of accessory muscles and clear to auscultation bilaterally AUSCULTATION: clear to auscultation bilaterally Cardio: COMMON NORMALS: regular rate and regular rhythm RATE: regular rate RHYTHM: regular rhythm Extremity: COMMON NORMALS: full ROM, capillary refill normal, no joint enlargement and no clubbing, cyanosis or edema NARRATIVE EXTREMITY EXAM: Tender to palpation to right lateral knee, no bruising or swelling. No excessive mobility with patella. No joint laxity though body habitus makes it difficult for this to be reliable. Distal sensations are intact, neurovascular status otherwise normal. Range of motion is intact but pain with flexion and extension. Neuro: COMMON NORMALS: patient oriented x3, moves all extremities, no focal motor deficits and no sensory deficits noted SENSORIUM/ORIENTATION: Yes alert MENINGEAL SIGNS: Yes no meningeal signs Skin: COMMON NORMALS: no rashes or lesions noted GENERAL SKIN EXAM: no rashes or lesions noted Course Vital Signs: Vital signs: Vital Signs Temperature 98.1 F 07/05/25 19:17 Pulse Rate 94 07/05/25 19:17 Respiratory Rate 16 07/05/25 19:17 Blood Pressure 129/85 07/05/25 19:17 Pulse Oximetry 99 07/05/25 19:17 Oxygen Delivery Me thod Room Air 07/05/25 19:17 MDM - Extremity (Nontraumatic) Medical Decision Making Patient presenting after injuring her right knee after jumping and landing awkwardly off a tractor. No laxity on exam however difficult to rely on this because of her body habitus. Otherwise no obvious sign of trauma or deformity, no swelling, distal neurovascular exam was normal. The x-ray did not show any acute finding or significant joint effusion. Though I still suspect some element of ligament involvement, at the least a sprain and she is given crutches for comfort and told to follow-up with orthopedics for further evaluation if she continues to have pain as she will likely need an MRI to assess further. She agrees with the plan discharge at this time. Lab Data Radiology Impressions Knee X-Ray 07/05/25 20:09 IMPRESSION: No acute findings. All radiology interpretation(s) finalized by discharge Discharge Plan Discharge Patient Disposition: Home Clinical Impression: Right knee sprain Qualifiers: Encounter type: initial encounter Involved ligament of knee: unspecified ligament Qualified Code(s): S83.91XA - Sprain of unspecified site of right knee, initial encounter Condition: Stable Prescriptions: No Action levothyroxine [Synthroid] 75 mcg tablet 75 mcg PO DAILY doxycycline monohydrate 100 mg capsule 100 mg PO BID Qty: 14 0RF amoxicillin-pot clavulanate 875-125 mg tablet 1 tab PO BID Qty: 7 0RF Discharge Orders: Discharge ED (Routine); Ordered 07/05/25 Ordered By: Jorge Correa Referrals: Vito,LORI Baldwin [Primary Care Provider, Nurse Practitioner] Patient Instructions: Patient Portal & Kezia Instructions Activity Restrictions/Additional Instructions: Knee Sprain Discharge Instructions Diagnosis: Acute right knee sprain, non-weightbearing with crutches, compression bandage applied. Orthopedic referral pending for suspected ligamentous injury. Activity and Protection - The [place] Heart Association and [place] recommend rest and limiting use of the injured extremity as the mainstay of initial management for sprains. Non-weightbearing status is appropriate for suspected ligamentous injury, and crutches should be used at all times when ambulating until further evaluation.[1]https://www.ahajournals.org/doi/abs/10.1161/CIR.7587247508711207?url_ver=Z39&rfr_id=hugo:rid:HealthEdge.org&rfr_dat=cr_pub%20%200pubmed[2]https://pubmed.ncbi.nlm.nih.gov/34648243 - Advise the patient to avoid any weightbearing on the affected limb. Crutches should be used for all transfers and ambulation. Instruct on proper crutch technique to minimize risk of falls and upper limb discomfort. Short-term use of crutches is generally well tolerated, though transient pain in other joints may occur and typically resolves after discontinuation.[2]https://pubmed.ncbi.nlm.nih.gov/04210423 Compression Bandage - Compression wraps may provide comfort and acute pain relief, but should not be applied so tightly as to compromise distal circulation. Instruct the patient to monitor for numbness, tingling, increased pain, or discoloration of the foot, and to loosen the bandage if these occur.[1]https://www.ahajournals.org/doi/abs/10.1161/CIR.6419808988044938?url_ver=Z39&rfr_id=hugo:rid:crossref.org&rfr_dat=cr_pub%20%200pubmed Cold Therapy - Cold application (ice pack with a damp cloth) for 20?30 minutes, 3?4 times daily, is recommended in the acute phase to reduce pain and swelling. Ice should never be placed directly on the skin to avoid cold injury. Cold therapy has not been shown to improve long-term function or time to recovery, but is effective for symptom control.[1]https://www.ahajournals.org/doi/abs/10.1161/CIR.8265408223607445?url_ver=Z39.88-2003&rfr_id=hugo:rid:crossref.org&rfr_dat=cr_pub%20%200pubmed Elevation - Elevate the affected limb above heart level when possible to help reduce swelling.[3]https://pubmed.ncbi.nlm.nih.gov/94383770 Pain Management - Acetaminophen or NSAIDs may be used for pain control, unless contraindicated. Dosage should follow standard recommendations and consider patient-specific factors. Monitoring and Follow-up - Advise the patient to monitor for increased pain, swelling, numbness, tingling, inability to move the toes, or changes in skin color, and to seek prompt medical attention if these occur. - Orthopedic referral is indicated for further evaluation of suspected ligamentous injury, as per consensus guidelines. Advanced imaging (MRI) may be considered if radiographs are negative and internal derangement is suspected.[4]https://Visualant.[facility].Digital Lifeboat/retrieve/pii/J4242-5174(71)39753-5[5]https://pubmed.ncbi.nlm.nih.gov/95253224 Rehabilitation - No active rehabilitation exercises should be initiated until cleared by orthopedics. Early physical therapy may be indicated after specialist assessment, depending on injury severity.[6]https://jamanetwork.com/journals/jose/fullarticle/10.1001/jose.2023.?utm_source=openevidence&utm_medium=referral Prognosis - Most acute knee sprains managed conservatively recover with appropriate protection and symptom management. Persistent instability, mechanical symptoms, or failure to improve should prompt re-evaluation.[6]https://jamanetwork.com/journals/jose/fullarticle/10.1001/jose.2023.14784?utm_source=openevidence&utm_medium=referral Precautions - Advise against driving, operating heavy machinery, or engaging in activities that risk further injury until cleared by orthopedics. Return Precautions - Return to the emergency department or clinic for: - Severe or worsening pain - New numbness, tingling, or weakness in the leg or foot - Signs of infection (fever, redness, warmth, pus) - Inability to move the toes or foot - Sudden increase in swelling Orthopedic Follow-up - The patient should attend the scheduled orthopedic appointment for definitive evaluation and management. Patient Education - Provide education on crutch use, compression bandage care, and cold therapy technique. Reinforce the importance of non-weightbearing status until further assessment. References: [place] Heart Association and [place] Guidelines for First Aid, [place] [employer] Appropriateness Criteria, [facility], JOSE reviews, Injury journal.[1]https://www.ahajournals.org/doi/abs/10.1161/CIR.0755318080276711?url_ver=Z&rfr_id=hugo:rid:crossref.org&rfr_dat=cr_pub%20%200pubmed[4]https://Visualant.[facility].[employer]/retrieve/pii/Y6138-6091(77)61384-1[5]https://pubmed.ncbi.nlm.nih .gov/39445284[3]https://pubmed.ncbi.nlm.nih.gov/07635273[6]https://jamanetwork.com/journals/jose/fullarticle/10.1001/jose.2023.75807?utm_source=openevidence&utm_medium=referral[2]https://pubmed.ncbi.nlm.nih.gov/04874196 References 2023 [place] Heart Association and [place] Guidelines for First Aidhttps://www.ahajournals.org/doi/abs/10.1161/CIR.0840955421782546?url_ver=Z&rfr_id=hugo:rid:crossref.org&rfr_dat=cr_pub%20%200pubmed. Ashley MCDONALD, Derian ENGLAND, Immanuel K, et al. Circulation. 2023;150(24):o857-v926. doi:10.1161/CIR.6064221130011131. The Impact of Non Weight Bearing: A Prospective Cohort Studyhttps://pubmed.ncbi.nlm.nih.gov/92031568. Jose Antonio R, Ghada D, Gerson S, [place] M. Injury. 2017;48(6):7597-9026. doi:10.1016/j.injury.2017.03.006. The Acute Management of Soft Tissue Injuries of the Kneehttps://pubmed.ncbi.nlm.nih.gov/47645970. Cheyenne JR, Vitor EB. [facility]. 2002;33(3):575-85. doi:10.1016/z9311-76360135101-7. ACR Appropriateness Criteria? Acute Trauma to the Kneehttps://[employer].[facility].com/retrieve/pii/X3580-6005(29)60229-0. Leeann MS, Jasen EY, Luis , et al. Journal of the [place] [employer] : JACR. 2020;17(5S):S12-S25. doi:10.1016/j.jacr.2020.01.041. ACR Appropriateness Criteria Acute Trauma to the Kneehttps://pubmed.ncbi.nlm.nih.gov/89718556. Maile MJ, Kransdorf MJ, Nelly FD, et al. Journal of the [place] [employer]iology : JACR. 2015;12(11):1164-72. doi:10.1016/j.jacr.2015.08.014. Evaluation and Treatment of Knee Pain: A Reviewhttps://jamanetwork.com/journals/jose/fullarticle/10.1001/jose.202.?utm_source=openevidence&utm_medium=referral. Kevin V, Oo WM, Kyaw C, Culamisha AG, Edwin DJ. JOSE. 2022;330(16):9876-6205. doi:10.1001/jose.202.. Print Language: Barbadian Coding Level of Care Code ED Copy Director for Chaparro Lawrence
--- NOTE | 2025-07-07 09:19 | DCPLANNER ---
messaged ortho for er f/u
== END 2025-07-05 21:45 | disposition home or self-care (01) ==
PROVIDERS: Emergency Provider Physician Assistant; PCP Nurse Practitioner Family
DX: S83.91XA Sprain of unspecified site of right knee, initial encounter (principal); X58.XXXA Exposure to other specified factors, initial encounter
CPT/HCPCS: 73562; 99283; E0114

== ENCOUNTER → 2025-07-15 14:15 | Outpatient (BNVA) | payer SELFPAY | PROVIDERS: PCP Nurse Practitioner Family; Visit Provider Physician Assistant | DX: M23.303 Other meniscus derangements, unspecified medial meniscus, right knee (principal); S89.91XA Unspecified injury of right lower leg, initial encounter; X58.XXXA Exposure to other specified factors, initial encounter; Z46.89 Encounter for fitting and adjustment of other specified devices | CPT/HCPCS: 73560; 73565 ==

== ENCOUNTER 2025-09-04 01:16 | Emergency (ER) | payer SELFPAY ==
[2025-09-04 01:22] VITALS: BP 139/76; PULSE 96; RESP 16; TEMP 36.5; O2SAT 98; BMI 34.8
--- NOTE | 2025-09-04 01:28 | ECG_ITS ---
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 Measurements Intervals [place] Rate: 93 P: 58 AL: 163 QRS: 67 QRSD: 87 T: 37 QT: 338 QTc: 421 Interpretive Statements SINUS RHYTHM NONSPECIFIC T-WAVE ABNORMALITY No previous ECG available for comparison Electronically Signed On 09-06-2025 13:02:12 MANAGER CHANGE by Samantha Slater M.D. [id number]
--- NOTE | 2025-09-04 01:51 | XRR_ITS ---
PROCEDURE INFORMATION: Exam: XR Chest Exam date and time: 09/04/2025 2:17 AM Age: 30 years old Clinical indication: Pain; Angina pectoris; Additional info: Chest pain TECHNIQUE: Imaging protocol: Radiologic exam of the chest. Views: 1 view. COMPARISON: No relevant prior studies available. FINDINGS: Lungs: Unremarkable. No consolidation. Pleural spaces: Unremarkable. No pleural effusion. No pneumothorax. Heart/Mediastinum: Unremarkable. No cardiomegaly. Bones/joints: Unremarkable. XR/XR chest 1V portable [id number] IMPRESSION: No acute findings.
--- NOTE | 2025-09-04 02:48 | W.ED.CHESTPA ---
HPI - Chest Pain General: Chief Complaint: Chest Pain Stated Complaint: Heavy on Chest Time Seen by Provider: 09/04/25 02:16 History of Present Illness: Patient is a 30-year-old female with a history of thyroid disease presents for chief complaint of waking up from sleep, gasping and feeling short of breath. She states this has made her feel anxious and panicked. Patient states her whole body started to feel heavy, she hyperventilated. She also notes that her father has of cardiac arrest. This prompted her to come to the emergency department. Patient has not had a fever, denies cough, current shortness of breath, productive cough, hemoptysis, syncope, lower extremity swelling. Patient is not experiencing chest pain now although she does report intermittent burning retrosternal sensation with radiation to her throat for which she has started taking eomv-yhe-cojdmvz omeprazole. This is not exertional. She states it happens at rest and sometimes it happens after eating. Patient states that it does not radiate to jaw, lateral neck or arm. Patient denies abdominal pain, nausea or vomiting. No dysuria or diarrhea. She denies possibility of . Related Data Home Medications ?Medication ?Instructions ?Recorded ?Confirmed levothyroxine 75 mcg tablet 75 mcg PO DAILY 04/01/20 07/18/25 (Synthroid) Previous Rx's ?Medication ?Instructions ?Recorded doxycycline monohydrate 100 mg 100 mg PO BID #14 caps 05/23/25 capsule amoxicillin 875 mg-potassium 1 tab PO BID #7 tabs 05/26/25 clavulanate 125 mg tablet right knee economy brace #1 ea 07/15/25 Allergies Allergy/AdvReac Type Severity Reaction Status Date / Time No Known Allergies Allergy Verified 09/04/25 01:33 [facility] ED [facility]: Medical History (Updated 09/04/25 @ 04:39 by Imelda Dukes MD) Metabolic syndrome Acquired hypothyroidism Surgical History S/P primary low transverse (11/29/20) Diagnosis: Arrest of labor. Performed by Dr. Valdez at [facility] in [place], [place]. Confirmed low transverse incision with 2 layer closure. History of appendectomy (~2011) Family History Father Diabetes Type 1- Insulin dependent since he was 12 y/o Hyperlipidemia Mother Hypertension Social History Smoking and tobacco/nicotine status: never used tobacco/nicotine Quit status (tobacco/nicotine): has quit using Year quit tobacco: 2018 Alcohol intake: former Former alcohol use details: Social before Substance/Drug Use: never Female Reproductive History: Para: 1 Physical Exam Narrative: EXAM NARRATIVE: Vital signs were reviewed. Patient is alert and oriented. Patient is breathing comfortably, no increased WOB or accessory muscle use. SpO2 is above 95% on RA. Patient has clear lungs b/l, no rhonchi, wheezing or crackles. No hypotension or tachycardia. Abdomen is soft, nondistended and nontender. Patient is moving all extremities, no deformity or gross injury. No lower extremity edema or asymmetry. Course Vital Signs: Vital signs: Vital Signs Temperature 97.7 F 09/04/25 01:22 Pulse Rate 76 09/04/25 04:00 Respiratory Rate 18 09/04/25 04:00 Blood Pressure 112/67 09/04/25 04:00 Pulse Oximetry 96 09/04/25 04:00 Oxygen Delivery Me thod Room Air 09/04/25 01:22 MDM - Chest Pain Medical Decision Making 30-year-old female presents with a chief complaint of waking up short of air, chest heaviness, anxiety. Differential diagnosis includes, but is not limited to, ACS, myocarditis, pericarditis, pneumonia, viral upper respiratory infection, PE, GERD, other. On initial exam, patient is hemodynamically stable nontoxic appearing. EKG was personally reviewed and interpreted and shows normal sinus rhythm with a heart rate of 93, normal axis, normal intervals and no evidence of ST segment elevation or ischemic change. Patient reports mild retrosternal burning and was treated with GI cocktail. Patient was evaluate CBC, BMP, troponin, D-dimer, EKG and chest x-ray. Patient has a normal white blood cell count and is not anemic. She has a baseline troponin less than 6, normal D-dimer. Chest x-ray does not demonstrate acute findings. Her heart score is 2. Patient is low risk for ACS. Patient may be suffering from obstructive sleep apnea, advised sleep study on outpatient basis. At this time, patient is stable for outpatient management. Patient was counseled on supportive care at home, given return precautions and discharged in stable condition with recommendation for outpatient follow-up with primary care nurse or doctor. Lab Data 09/04/25 02:54 09/04/25 02:54 Radiology Impressions Chest X-Ray 09/04/25 01:51 IMPRESSION: No acute findings. Laboratory Results WBC 6.41 10^3/uL (3.29-11.43) 09/04/25 02:54 RBC 3.91 10^6/uL (3.85-5.65) 09/04/25 02:54 Hgb 11.70 g/dL (11.27-16.99) 09/04/25 02:54 Hct 33.8 % (36-47) L 09/04/25 02:54 MCV 86.4 fl (85-98) 09/04/25 02:54 MCH 29.9 pg (27-33) 09/04/25 02:54 MCHC 34.6 g/dL (30-55) 09/04/25 02:54 RDW 12.1 % (12.1-15.1) 09/04/25 02:54 Plt Count 245 10^3/cmm (157-399) 09/04/25 02:54 MPV 10.0 fL (7.4-10.4) 09/04/25 02:54 Neut % (Auto) 68.7 % 09/04/25 02:54 Lymph % (Auto) 21.2 % 09/04/25 02:54 Wharton % (Auto) 7.0 % 09/04/25 02:54 Eos % (Auto) 2.3 % 09/04/25 02:54 Baso % (Auto) 0.5 % 09/04/25 02:54 Neut # (Auto) 4.40 10^3/uL (1.8-7.7) 09/04/25 02:54 Lymph # (Auto) 1.4 10^3/uL (0.8-4.8) 09/04/25 02:54 Wharton # (Auto) 0.5 10^3/uL (0.2-0.9) 09/04/25 02:54 Eos # (Auto) 0.2 10^3/uL (0.0-0.8) 09/04/25 02:54 Baso # (Auto) 0.0 10^3/uL (0.0-0.1) 09/04/25 02:54 Nucleated RBC % (auto) 0 % 09/04/25 02:54 Nucleated RBCs # 0.0 /100WBC 09/04/25 02:54 D-Dimer 0.55 ug/mLFEU (0-0.59) 09/04/25 02:54 Sodium 138 mmol/L (136-145) 09/04/25 02:54 Potassium 4.2 mmol/L (3.5-5.1) 09/04/25 02:54 Chloride 104 mmol/L (98-107) 09/04/25 02:54 Carbon Dioxide 23 mmol/L (22-29) 09/04/25 02:54 Anion Gap 15.2 (5-19) 09/04/25 02:54 BUN 16 mg/dL (6-20) 09/04/25 02:54 Creatinine 0.5 mg/dL (0.5-0.9) 09/04/25 02:54 GFR Calculation 143.0 mL/min (90-130) H 09/04/25 02:54 Glucose 110 mg/dL (65-115) 09/04/25 02:54 Calculated Osmolality 288 mOsm/kg (285-295) 09/04/25 02:54 Calcium 9.2 mg/dL (8.5-10.5) 09/04/25 02:54 Troponin T Baseline < 6 ng/L (0-10) 09/04/25 02:54 All radiology interpretation(s) finalized by discharge EKG Data EKG 1: Interpretation: normal sinus rhythm with a heart rate of 93, normal axis, normal intervals and no evidence of ST segment elevation or ischemic change. TWI in lead III which may be baseline. No prior EKG for comparison. Discharge Plan Discharge Patient Disposition: Home Clinical Impression: Acid indigestion, Shortness of breath Condition: Stable Prescriptions: No Action levothyroxine [Synthroid] 75 mcg tablet 75 mcg PO DAILY doxycycline monohydrate 100 mg capsule 100 mg PO BID Qty: 14 0RF (DME) right knee economy brace See Rx Instructions .Route .MEDSUPPLY Qty: 1 0RF Rx Instructions: As directed amoxicillin-pot clavulanate 875-125 mg tablet 1 tab PO BID Qty: 7 0RF Discharge Orders: Discharge ED (Routine); Ordered 11/06/25 Ordered By: Imelda Dukes Referrals: Vito,DEIDRE BaldwinN [Primary Care Provider, Nurse Practitioner] Patient Instructions: Opioid Safety, Pain Management, Patient Portal & Kezia Instructions, GERD (Gastroesophageal Reflux Disease) (DC), Obstructive Sleep Apnea, Shortness of Breath (ED) Activity Restrictions/Additional Instructions: You may be suffering from sleep apnea. Please follow-up with your primary care physician to schedule an outpatient sleep study. Continue taking acid reducing medications, you may take up to 40 mg daily of omeprazole. Avoid ibuprofen, Motrin, Aleve, naproxen and other NSAIDs. Please consider bland diet until your symptoms improve. Please continue to monitor your condition closely at home. Take Tylenol 500-1000mg every six hours for pain and inflammation. If your condition worsens or additional concerns arise, please return promptly to the emergency department for reassessment. Follow up with your primary care doctor in one week. Print Language: Israeli Coding Level of Care Code ED Gate Operator for Chg Fwd Heart Score HEART Score Components History: Slightly Suspicous EKG: Non-specific Changes Age: Less than 45 yrs Risk Factors: 1 or 2 Risk Factors (Obesity) Troponin: Baseline Trop <16 ng/L HEART Score RESULT HEART Score: 2
[2025-09-04] MEDS: lidocaine 2% viscous 15 ML, aluminum-mag hydrox-simethicon 30 ML, sucralfate oral liq 1 GM PO (03:03)
[2025-09-04 03:10] LABS: Hematocrit 33.8 % (36-47); Hemoglobin 11.70 g/dL (11.27-16.99); Mean Corpuscular HGB Conc 34.6 g/dL (30-55); Mean Corpuscular Hemoglobin 29.9 pg (27-33); Mean Corpuscular Volume 86.4 fl (85-98); Nucleated Red Blood Cells % 0 %; Platelet Count 245 10^3/cmm (157-399); Red Blood Count 3.91 10^6/uL (3.85-5.65); White Blood Count 6.41 10^3/uL (3.29-11.43)
[2025-09-04 03:16] VITALS: BP 134/80; PULSE 83; RESP 16; O2SAT 98
[2025-09-04 03:28] LABS: Troponin(5th) Baseline < 6 ng/L (0-10)
[2025-09-04 03:30] VITALS: BP 99/75; PULSE 79; RESP 17; O2SAT 98
[2025-09-04 03:30] LABS: Anion Gap 15.2 (5-19); Blood Urea Nitrogen 16 mg/dL (6-20); Calcium 9.2 mg/dL (8.5-10.5); Carbon Dioxide 23 mmol/L (22-29); Chloride 104 mmol/L (98-107); Creatinine Clr Calc Pharmacy 190.6645; Glucose 110 mg/dL (65-115); Osmolality Calculated 288 mOsm/kg (285-295); Potassium 4.2 mmol/L (3.5-5.1); Sodium 138 mmol/L (136-145)
--- NOTE | 2025-09-04 03:54 | ECG_ITS ---
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
[2025-09-04 04:00] VITALS: BP 112/67; PULSE 76; RESP 18; O2SAT 96
[2025-09-04 05:06] VITALS: BP 111/78; PULSE 76; O2SAT 96
== END 2025-09-04 05:07 | disposition home or self-care (01) ==
PROVIDERS: Emergency Provider Emergency Medicine; PCP Nurse Practitioner Family
DX: K30 Functional dyspepsia (principal); R06.02 Shortness of breath; Z87.891 Personal history of nicotine dependence
CPT/HCPCS: 36415; 71045; 80048; 84484; 85025; 85378; 93005; 99285; J9999